=== PATIENT | female | born 1965 | race American Indian/Alaskan Native ===

== ENCOUNTER 2021-12-25 13:20 | Emergency (ER) | payer MEDICAID ==
[2021-12-25] MEDS ORDERED: Sodium Chloride 0.9% 1,000 ML IV ONE (13:49)
[2021-12-25] MEDS ORDERED: Famotidine 20 MG/2 ML SDV IVPUSH ONE (13:55)
[2021-12-25] MEDS ORDERED: Ketorolac 30 MG/ML SDV IVPUSH ONE (13:55)
[2021-12-25] MEDS ORDERED: hydrOXYzine HCl 25 MG Tab PO ONE (13:55)
[2021-12-25] MEDS ORDERED: Ondansetron 4 MG/2 ML SDV IVPUSH ONE (13:55)
[2021-12-25 14:33] LABS: ESTIMATED GFR 54 mL/min (>60)
[2021-12-25] MEDS ORDERED: Levothyroxine 112 MCG Tab PO ONE (14:54)
[2021-12-25] MEDS ORDERED: Levothyroxine 25 MCG Tab PO ONE (15:12)
[2021-12-25] MEDS ORDERED: Cyclobenzaprine 10 MG Tab PO ONE (15:40)
== END 2021-12-25 16:56 | disposition home or self-care (01) ==
LOC: JP.ED 13:20
DX: E03.9 Hypothyroidism, unspecified (principal); F12.10 Cannabis abuse, uncomplicated; F10.10 Alcohol abuse, uncomplicated; M06.9 Rheumatoid arthritis, unspecified; Z72.0 Tobacco use
CPT/HCPCS: 36415; 80053; 80305; 81001; 84443; 85025; 93005; 96361; 96374; 96375; 99284; A9270; J1885; J2405; J3490; J7030